=== PATIENT | male | born 1995 | race African-American/Black ===

== ENCOUNTER 2018-03-19 19:45 | Emergency (ER) | payer OTHER ==
[~2018-03-19] VITALS: Ht 185.4 cm; Wt 90.7 kg
[2018-03-19 19:45] VITALS: BP 136/82
[~2018-03-19 19:45] MED LIST: AMOXICILLIN500 MG ORAL; BACITRACIN1 APPLIC TOPIC; IBUPROFEN600 MG ORAL; KEFLEX500 M1 GT; NKM; NORCO 5-325 TA1 EACH ORAL; VALIUM5 MG ORAL
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
[2018-03-19] MEDS ORDERED: IBUPROFEN600 MG ORAL (20:01)
[2018-03-19 20:10] VITALS: BP 136/82
== END 2018-03-19 20:10 ==
LOC: EDBD 19:45 → EMR 20:10
DX: R07.89 Other chest pain (principal); J45.909 Unspecified asthma, uncomplicated; F17.200 Nicotine dependence, unspecified, uncomplicated
CPT/HCPCS: 99283

== ENCOUNTER 2020-06-01 00:43 | Emergency (ER) | payer OTHER ==
[~2020-06-01] VITALS: Ht 182.9 cm; Wt 98.0 kg
[2020-06-01 00:50] VITALS: BP 143/83
--- NOTE | 2020-06-01 00:50 | NUR ---
ED Nurse Note: walked in to ed c/o bilat feet and hand numbness and tingling onset 4 days ago after waking up in the morning with unk cause. denies any pain. denies trauma. vss, nad, aaox4, ambulatory, ermd at bedside
[2020-06-01 01:20] VITALS: BP 140/80
--- NOTE | 2020-06-01 01:20 | NUR ---
ER DISCHARGE NOTE: Patient is cleared to be discharged per ERMD, pt is aox4, on room air, with stable vital signs. pt was given dc and prescription instructions, pt was able to verbalize understanding, pt id band removed without complications. pt is able to ambulate with steady gait. pt took all belongings.
[2020-06-01] MEDS ORDERED: NAPROXEN500 M1 ORAL (01:21)
[2020-06-01] MEDS ORDERED: Ketorolac 60mg Inj IM ONE (01:30)
--- NOTE | 2020-06-01 01:56 | Emergency Room Report ---
History of Present Illness General Chief Complaint: General Complaint Source: Patient Present Illness HPI 25-year-old -[place] male with past medical history of asthma presents with bilateral plantar foot pain x4 days, worse with walking. Patient became concerned because now it also is affecting his palms. Denies rashes, fevers, chills, nausea, vomiting, diarrhea, neck pain, headache, photophobia, or other symptoms. He has not tried any medications for his pain. The pain is isolated to the bottom of his feet and is nonradiating. He denies any recent trauma, lacerations, or swelling. Denies chest pain, shortness of breath, nausea, vomiting, diarrhea, or other symptoms The patient's symptoms were gradual onset, severity was moderate, duration since 4 days. Quality: Aching, tingling Past medical history: Asthma Past surgical history: Denies Smoking: Occasional Alcohol use: Occasional Drug use: Denies Review of systems: CONST: No fevers or chills, No night sweats PULMONARY: No productive cough, No shortness of breath CARDIAC: No chest pain, No palpitations GI: No vomiting, No diarrhea , No melena_or_BRBPR : No dysuria, No hematuria, No discharge NEURO: No new_focal_weakness_or_numbness, No confusion, No vision changes 14 point Review of Systems is otherwise negative except per HPI Physical Exam: GENERAL: Awake_alert_ nontoxic, no acute distress Spo2 98% on RA -normal EYES: Extraocular muscles are intact. Conjunctivae clear. Lids without swelling ENT: External nose and ear normal_in_appearance. Oropharynx clear. Head_ atraumatic, Moist_oral_mucosa NECK: No JVD. No meningismus. No thyromegaly. Supple. Trachea midline RESP: Normal respiratory effort. Symmetric rise. No stridor. Clear_to_auscultation_No_rales_No_wheezes CARDIAC: Regular rate and regular rhytm. ABDOMEN: Soft. Nondistended. Nontender_No_rebound_or_guarding. MSK: Normal muscle tone, without rigidity. Extremities without asymmetric deformity or swelling. Negative Homans sign bilaterally. Tenderness to palpation of plantar fascia bilaterally. No pedal edema SKIN: Warm and dry. No visible cyanosis or pallor. Palms and soles have no petechiae, purpura, or rash NEUROLOGIC: Alert, oriented x3. Motor_and_sensation_grossly_intact. No truncal ataxia. Gait_normal Psych: Normal mood and affect, normal judgment and insight - COORDINATION OF CARE Case was discussed with: Patient Medical Decision Making/Plan: Differential diagnosis: Plantar fasciitis, paresthesia, musculoskeletal sprain/strain, doubt fracture, doubt diabetic neuropathy, doubt CVA, doubt TIA Patient is well-appearing and afebrile. No focal neurologic deficits. No abnormal cerebellar signs. Examination is consistent with plantar fasciitis. Patient received Toradol while in the emergency department with relief of sympt oms. He also has nonspecific complaint of tingling in bilateral palms. Examination of the skin is negative for any lesions, rashes, or deformities. I have instructed patient to follow-up with his primary care doctor. Accu-Chek here is within normal limits. Patient is not diabetic. Will DC with Naprosyn and recommend heel/arch support inserts Pertinent results reviewed with the patient. I educated the patient on the current treatment plan including the risks, benefits, and alternatives. I also discussed the extent and limitations of the current evaluation. The patient expressed understanding and agreement with plan. I recommended PMD follow-up within 1-2 days. Also advised that the patient return to the Emergency Department as soon as possible if they experience any new, persistent, or worsening symptoms. Allergies: Coded Allergies: No Known Allergies (Unverified , 06/10/12) COVID-19 Screening Contact w/high risk pt: No Experienced COVID-19 symptoms?: No COVID-19 Testing performed [employer]AD [employer] TECH[employer]OLOGIST: No Nursing Documentation-PMH Hx Asthma: Yes Physical Exam Vital Signs Date Time Temp Pulse Resp B/P (MAP) Pulse Ox O2 Delivery O2 Flow Rate FiO2 06/01/20 00:45 98.2 91 16 148/89 (108) 99 Room Air 06/01/20 00:50 99 Sp02 EP Interpretation: reviewed, normal Medical Decision Making Diagnostic Impression: Primary Impression: Plantar fasciitis, bilateral Additional Impression: Paresthesia Last Vital Signs Date Time Temp Pulse Resp B/P (MAP) Pulse Ox O2 Delivery O2 Flow Rate FiO2 06/01/20 01:20 98.1 80 16 140/80 99 Room Air 99 Disposition: HOME, SELF-CARE Admit Decision Time: 01:30 Condition: Stable Scripts Naproxen* (NAPROXEN*) 500 Mg Tablet. 500 MG ORAL TWICE A DAY for 14 Days, #28 TAB Prov: Lola Santana D.O. 06/01/20 [facility] Patient Instructions: Plantar Fasciitis, Paresthesia, [id number], Plantar Fasciitis With Rehab-SportsMed Additional Instructions: Instructions for patient/charge master specialist: Follow up with your physician in 1-2 days if your symptoms persist for routine lab work. Follow-up with your doctor sooner if your condition requires a more timely clinical reevaluation. Rest. Take medications as prescribed Return to the emergency department immediately if you feel that your condition is worsening or if you have any new or concerning symptoms. Review your discharge instructions and take any prescriptions given as instructed. [facility] PROVIDES FREE OR LOW-COST HEALTH SERVICES TO PEOPLE WHO CAN SHOW PROOF THAT THEY LIVE IN [facility]. TO FIND MORE CLINICS PARTNERED WITH THE [facility] TO PROVIDE SERVICE, PLEASE CALL . Lola Santana D.O. Jun 01, 2020 01:56
== END 2020-06-01 01:20 | disposition home or self-care (01) ==
LOC: EMR 00:58
DX: M72.2 Plantar fascial fibromatosis (principal); R20.2 Paresthesia of skin
CPT/HCPCS: 96372; Z7502; 99283